=== PATIENT | male | born 1955 | race Caucasian/White ===

== ENCOUNTER 2018-06-21 07:35 | Day surgery (SDC) | payer OTHER, MEDICAID ==
[~2018-06-21] VITALS: Ht 167.6 cm; Wt 72.6 kg
--- NOTE | 2018-06-21 01:38 | NUR ---
NOTE PATIENT IS SLEEPING, STABLE, NO SIGNS OF RESPIRATORY DISTRESS. FAMILY IS AT BEDSIDE. CALL LIGHT IS WITHIN REACH. BED IS LOCKED, ALARMED, AND AT THE LOWEST LEVEL. Addendum: 06/22/18 at 0216 by Dulce Cee RN NOTE INTENDED FOR DIFFERENT TIME.
[2018-06-21] MEDS ORDERED: fentaNYL CITRATE/PF 100 MCG/2 ML AMP IVP PRN ×2 (09:00)
[2018-06-21] MEDS ORDERED: ONDANSETRON HCL 4 MG/2 ML VIAL IVP PRN ×2 (09:00→12:30)
[2018-06-21 09:38] LABS: ALBUMIN 3.7 g/dL (3.4-4.8); CALCIUM 10.7 mg/dL (8.4-11.0)
[2018-06-21] MEDS ORDERED: NEOSTIGMINE METHYLSULFATE 1 MG/ML, 10 ML VIAL IVP ONE (10:00)
[2018-06-21] MEDS ORDERED: fentaNYL CITRATE/PF 100 MCG/2 ML AMP IVP ONE (10:00)
[2018-06-21] MEDS ORDERED: LIDOCAINE/EPI 1% 1:100000 20 ML VIAL INJ ONE (10:00)
[2018-06-21] MEDS ORDERED: ROCURONIUM BROMIDE 10 MG/ML (ZEMURON) IV ONE (10:00)
[2018-06-21] MEDS ORDERED: MIDAZOLAM HCL 5 MG/5 ML VIAL IVP ONE (10:00)
[2018-06-21] MEDS ORDERED: LR 1,000 ML IV.SOLN IV ONE (10:00)
[2018-06-21] MEDS ORDERED: NS IRRIG SOLN 1000 ML IR ONE (10:00)
[2018-06-21] MEDS ORDERED: GLYCOPYRROLATE 0.2 MG/ML VIAL IJ ONE (10:00)
[2018-06-21] MEDS ORDERED: DEXAMETHASONE SOD PHOSPHATE 4 MG/ML VIAL IVP ONE (10:00)
[2018-06-21] MEDS ORDERED: SEVOFLURANE 15 MIN GAS INH ONE (10:00)
[2018-06-21] MEDS ORDERED: PROPOFOL 200MG/ 20ML VIAL (DIPRIVAN) IV ONE (10:00)
[2018-06-21] MEDS ORDERED: MORPHINE 2 MG/ML INJ. SYRINGE IVP PRN (12:30)
[2018-06-21] MEDS ORDERED: HYDROcodone/ACETAMIN 5-325 MG TAB (NORCO/ VICODIN) PO PRN ×2 (12:30)
[2018-06-21] MEDS ORDERED: fentaNYL CITRATE/PF 100 MCG/2 ML AMP ONE (12:34)
--- NOTE | 2018-06-21 13:32 | NUR ---
Opening Note received report from admitting RN, pt resting in bed, A&Ox4, respirations even and unlabored, pt reports pain is controlled, pt denies any SOB, no acute distress noted, tracheostomy kit on standby, IV site clean, dry, and intact, pt educated on use of incentive spirometer, family at bedside, pt educated on use of call light and asked to call for assistance, pt verbalized understanding, call light in reach, bed in low position, bed alarm on, fall and aspiration precautions in place.
[2018-06-21] MEDS: KCL 20 mEq in 0.45% NS 1000 mL 1,000 ML IV SCH (14:25)
--- NOTE | 2018-06-21 14:26 | NUR ---
Pain Management/Medication pt complaint of pain 03/05 to neck, pt educated on use and side effects of PRN pain medication, pt verbalized understanding, tolerated medication administration well, no acute distress noted, fall and aspiration precautions in place.
[2018-06-21 14:35] VITALS: BP_SYST 163
[2018-06-21] MEDS: MUPIROCIN 2% TOPICAL OINTMENT 22 GM TP SCH ×2 (15:00→20:25)
--- NOTE | 2018-06-21 15:04 | NUR ---
ENT, DR Demario BERMUDEZ WAS CALLED RE: HIGH BP (159/81). SPOKE TO CATHRYN
--- NOTE | 2018-06-21 15:15 | NUR ---
Spoke with MD spoke with Dr. Maddox, informed MD that pts BP has been in 160's, last BP 169/81, orders for consult with Dr. Leggett, orders verified with telephone read back.
--- NOTE | 2018-06-21 15:17 | NUR ---
CONSULTATION PAGED/CALLED Reason for Consultation: [] HIGH BP Person Who was Notified: [] DANNA Consulting Physician: [] DR Darwin MEDINA Forest Resource Specialist Specialty: [] HOSPITALIST Ordering Physician: [] DR Demario BERMUDEZ
--- NOTE | 2018-06-21 15:20 | NUR ---
Ice Pack new ice pack provided to pt per MD orders, pt resting in bed, family at bedside, no acute distress noted, fall and aspiration precautions in place.
--- NOTE | 2018-06-21 15:45 | NUR ---
Spoke with spoke with Dr. Maddox, clarified order for bactroban with MD, per MD bactroban to be applied to surgical incision on neck, per MD do not give 1500 dose of bactroban, MD will be in to see patient.
--- NOTE | 2018-06-21 17:33 | NUR ---
Ice pack new ice pack provided to pt per orders, pt resting in bed, pt reports pain is controlled, no acute distress noted, family at bedside, fall and aspiration precautions in place.
[2018-06-21 18:02] VITALS: BP_SYST 133
--- NOTE | 2018-06-21 18:40 | NUR ---
MD Rounds/Education Dr. Maddox at bedside speaking with pt and pts family, MD educated family on application of bactroban to surgical incision site, family verbalized understanding, pt states that pain is controlled at this time, ice pack provided, per MD okay to advance pt to regular diet, fall and aspiration precautions in place.
--- NOTE | 2018-06-21 19:20 | NUR ---
Closing note pt resting in bed, A&Ox4, respirations even and unlabored on room air, pt reports pain is controlled at this time, denies any SOB, no acute distress noted, tracheostomy kit on standby, IV site clean, dry, intact, and infusing well, surgical dressing to neck clean, dry, and intact, SCDs in place, family at bedside, pt educated on use of call light and asked to call for assistance, pt verbalized understanding, call light in reach, bed in low position, bed alarm on, fall and aspiration precautions in place, care endorsed to Dulce GONZALEZ.
--- NOTE | 2018-06-21 19:45 | NUR ---
INITIAL NOTE AT INITIAL ASSESSMENT, PATIENT IS RESTING UPRIGHT IN BED, STABLE, NO SIGNS OF RESPIRATORY DISTRESS. PATIENT VERBALIZES TOLERABLE PAIN AT THIS TIME. FAMILY IS AT BEDSIDE. PLAN OF CARE FOR THE EVENING IS COMMUNICATED WITH THE PATIENT AND FAMILY AT BEDSIDE. CALL LIGHT- TEACH BACK IS SUCCESSFUL. BED IS LOCKED, ALARMED, AND AT THE LOWEST LEVEL. SAFETY AND FALL PRECAUTIONS WILL BE IN PLACE THROUGHOUT THE SHIFT. TRACHEOSTOMY KIT WILL BE ON STANDBY THROUGHOUT THE SHIFT.
[2018-06-21 19:52] VITALS: BP_SYST 123
--- NOTE | 2018-06-21 21:43 | NUR ---
INCENTIVE SPIROMETER TEACHING PATIENT SUCCESSFULLY DEMONSTRATES CORRECT USAGE OF INCENTIVE SPIROMETER AT THIS TIME, HE IS AVERAGING AROUND 3250 ML WITHOUT PAIN DURING DEMONSTRATION. PATIENT VERBALIZES KNOWLEDGE OF PRACTICING "10 TIMES AN HOUR". HE IS STABLE, NO SIGNS OF RESPIRATORY DISTRESS. CALL LIGHT WITHIN REACH. BED IS LOCKED, ALARMED, AND AT THE LOWEST LEVEL.
--- NOTE | 2018-06-21 23:41 | NUR ---
NOTE PATIENT IS SLEEPING, STABLE, NO SIGNS OF RESPIRATORY DISTRESS. CALL LIGHT IS WITHIN REACH. BED IS LOCKED, ALARMED, AND AT THE LOWEST LEVEL.
[2018-06-22 00:24] VITALS: BP_SYST 131
--- NOTE | 2018-06-22 01:40 | NUR ---
NOTE PATIENT IS SLEEPING, STABLE, NO SIGNS OF RESPIRATORY DISTRESS. FAMILY IS AT BEDSIDE. CALL LIGHT IS WITHIN REACH. BED IS LOCKED, ALARMED, AND AT THE LOWEST LEVEL.
[2018-06-22] MEDS: KCL 20 mEq in 0.45% NS 1000 mL 1,000 ML IV SCH (02:00)
--- NOTE | 2018-06-22 03:38 | NUR ---
NOTE PATIENT IS SLEEPING, STABLE, NO SIGNS OF RESPIRATORY DISTRESS. FAMILY IS AT BEDSIDE. CALL LIGHT WITHIN REACH. BED IS LOCKED, ALARMED, AND AT THE LOWEST LEVEL.
--- NOTE | 2018-06-22 05:34 | NUR ---
NOTE PATIENT IS SLEEPING, STABLE, NO SIGNS OF RESPIRATORY DISTRESS. CALL LIGHT WITHIN REACH. BED IS LOCKED, ALARMED, AND AT THE LOWEST LEVEL.
--- NOTE | 2018-06-22 06:58 | NUR ---
CLOSING NOTE PATIENT IS SLEEPING, STABLE, NO SIGNS OF RESPIRATORY DISTRESS. CALL LIGHT WITHIN REACH. BED IS LOCKED, ALARMED, AND AT THE LOWEST LEVEL. ALL NEEDS HAVE BEEN MET. FALL AND SAFETY PRECAUTIONS HAVE BEEN IN PLACE THROUGHOUT THE SHIFT. WILL CONTINUE TO MONITOR UNTIL SHIFT REPORT IS GIVEN AT BEDSIDE TO AM NURSE.
[2018-06-22 08:00] VITALS: BP_SYST 131
--- NOTE | 2018-06-22 08:00 | NUR ---
Note Pt sitting up in bed eating his breakfast. No SOB/resp distress or neck pain/discomfort noted at this time. Surgical dressing intact and dry at this time. Tele unit attached and intact at this time. IV in left hand intact and patent infusing IVF's well. No needs noted. Call light within reach. Pt's daughter and at bedside (stayed the night).
--- NOTE | 2018-06-22 09:00 | NUR ---
Note Dr Maddox came to floor and assessment of pt done at 0835am. Questions/concerns were answered. Verbal discharge orders given. Pt's tele unit was dc'd and returned to panel monitor at this time. Call light within reach.
[2018-06-22] MEDS: MUPIROCIN 2% TOPICAL OINTMENT 22 GM TP SCH (09:15)
--- NOTE | 2018-06-22 09:54 | NUR ---
MD MAN PAGED AT [phone] SPOKE WITH EXCHANGE WAS INFORMED [employer] ARCHITECT. CALLED AT [phone] SPOKE WITH DARIEL.
--- NOTE | 2018-06-22 10:10 | NUR ---
Note Dr Holguin called back and order for discharging Dr Maddox's pt given at this time.
[2018-06-22 10:49] VITALS: BP_SYST 127
--- NOTE | 2018-06-22 11:05 | NUR ---
Note Pt was given discharge instructions and prescription. Questions/concerns were answered. IV was dc'd in left hand - site benign, no swelling/redness/bleeding/drainage noted at this time. Pt dressed in street clothes and pt and his family checked side table and drawers for belongings. Family packed all belongings. Pt stable. No needs noted. Call light within reach.
--- NOTE | 2018-06-22 11:10 | NUR ---
Note Pt off the floor via wheelchair to car with all his belongings and discharge paperwork and prescription. Pt's neck dressing was changed and new dressing applied to neck incision. No bleeding/drainage was noted.
--- NOTE | 2018-06-24 16:06 | NUR ---
Discharge Planning: DCP faxed pt referral to Susy at [facility] (f [phone] p [phone]).
== END 2018-06-22 11:10 | disposition home or self-care (01) ==
LOC: STU 07:35 → SMU 07:35 → SDS 07:35 → SMU 13:25 → SDS 06-22 11:10
PROVIDERS: ATTEND Otolaryngology
DX: D35.1 Benign neoplasm of parathyroid gland (principal); E83.52 Hypercalcemia; M25.561 Pain in right knee; Z80.9 Family history of malignant neoplasm, unspecified; Z83.3 Family history of diabetes mellitus
CPT/HCPCS: 36415; 60500; 78070; 82040; 82310; 83970; 87081; 88305; 88331; A9500; J1100; J2250; J2270; J2704; J2710; J3010; J3490; J7120; J3480